=== PATIENT | male | born 1975 | race Caucasian/White ===

== ENCOUNTER 2018-06-27 15:41 | Inpatient (IN) ==
[2018-06-27 16:14] LABS: Basophils % 0.3 % (0.1-2.0); Eosinophils # 0.1 K/mm3 (0.0-0.4); Eosinophils % 0.6 % (0.1-12.0); Hematocrit 50.3 % (42.0-52.0); Hemoglobin 17.1 g/dL (14.1-18.0); Lymphocytes # 1.1 K/mm3 (0.7-4.5); Lymphocytes % 8.2 % (10-50); Mean Corpuscular HGB Conc 33.9 g/dL (31.8-35.4); Mean Corpuscular Hemoglobin 29.9 pg (27.0-31.2); Mean Corpuscular Volume 88.1 fl (80-94); Mean Platelet Volume 6.4 fl (7.4-10.4); Monocytes # 0.7 K/mm3 (0.1-1.0); Monocytes % 5.7 % (1.7-9.3); Neutrophils # 10.8 K/mm3 (1.8-7.8); Neutrophils % 85.1 % (37.0-80.0); Platelet Count 297 K/mm3 (142-424); Red Blood Count 5.71 M/mm3 (4.60-6.20); Red Cell Distribution Width 12.9 % (11.5-17.5); White Blood Count 12.7 K/mm3 (4.8-10.8)
[2018-06-27 16:27] LABS: Albumin Level 4.2 gm/dL (3.4-5.0); Albumin/Globulin Ratio 1.1 (1.1-1.8); Anion Gap 12.6 mEq/L (5-15); Bilirubin,Total 6.4 mg/dL (0.2-1.0); Calcium 9.7 mg/dL (8.5-10.1); Potassium 3.6 mmoL/L (3.5-5.1); Total Protein,Serum 8.2 gm/dL (6.4-8.2)
[2018-06-27 16:38] LABS: Lymphocytes % 5 % (10-50); Monocytes % 7 % (2-9); Neutrophils % 85 % (42-76); RBC Morphology Normal; Total Cells Counted 100
--- NOTE | 2018-06-27 18:18 | Emergency Department Note ---
ED Disposition Clinical Impression: Pancreatitis Disposition: Admitted As Inpatient Condition on Discharge: Good Instructions: Acute Pancreatitis Referrals: Maxx Patel MD [Primary Care Provider] - Time of Disposition: 19:06 - Critical Care Critical Care Time: No Attestation: On 06/27/18, the high probability of a clinically significant, sudden or life threatening deterioration of the following system(s) required my full and direct attention, intervention and personal management. The time I documented below is in addition to time spent performing reported procedures but includes the following listed in this critical care notation. Medical Decision Making - Medical Records Medical records reviewed: Yes: I reviewed the patient's medical records. - Yann Inquiry Pt receiving controlled substance: No Yann was queried for this patient: No Vital Signs: 06/27/18 15:51 06/27/18 17:29 Temperature 97 F L Temperature Source Oral Pulse Rate [Right Brachial] 63 56 L Respiratory Rate 17 Blood Pressure [Right Arm] 159/84 H 159/97 H Blood Pressure Mean [Right Arm] 109 117 Blood Pressure Source [Right Arm] Automatic Cuff Blood Pressure Position [Right Arm] Sitting 02 Sat by Pulse Oximetry 100 98 Oxygen Delivery Method Room Air - Lab Data Lab results reviewed: Yes: I reviewed the patient's lab results. Lab Results 06/27/18 16:03: WBC 12.7 H, RBC 5.71, Hgb 17.1, Hct 50.3, MCV 88.1, MCH 29.9, MCHC 33.9, RDW 12.9, Plt Count 297, MPV 6.4 L, Neut % (Auto) 85.1 H, Lymph % (Auto) 8.2 L, Sutter % (Auto) 5.7, Eos % (Auto) 0.6, Baso % (Auto) 0.3, Neut # (Auto) 10.8 H, Lymph # (Auto) 1.1, Sutter # (Auto) 0.7, Eos # (Auto) 0.1, Baso # (Auto) 0.0, Total Counted 100, Neutrophils % (Manual) 85 H, Band Neutrophils % 1.0, Lymphocytes % (Manual) 5 L, Atypical Lymphs % 2.0, Monocytes % (Manual) 7, Platelet Estimate Normal, RBC Morphology Normal 06/27/18 16:03: Sodium 140, Potassium 3.6, Chloride 102, Carbon Dioxide 29, Anion Gap 12.6, BUN 10, Creatinine 1.07, Estimated Creat Clear 131, Estimated GFR 76, Est GFR ( Amer) 92, Glucose 146 H, Calcium 9.7, Total Bilirubin 6.4 H, AST 306 H*, ALT 770 H*, Alkaline Phosphatase 217 H, Total Protein 8.2, Albumin 4.2, Globulin 4.0 H, Albumin/Globulin Ratio 1.1, Amylase 1939 H*, Lipase 59506 H Result diagrams: 06/27/18 16:03 06/27/18 16:03 Orders (Tests/Meds): ED MEDICATIONS Generic Name Dose Route Start Last Admin Trade Name Freq PRN Reason Stop Dose Admin Sodium Chloride 500 mls @ 999 mls/hr 06/27/18 17:15 06/27/18 17:26 Sod Chlor 0.9% 1000ml Bag IV 06/27/18 17:45 999 mls/hr .[id number] LINDA Administration Discontinued Medications Generic Name Dose Route Start Last Admin Trade Name Freq PRN Reason Stop Dose Admin Hydromorphone HCl 1 mg 06/27/18 18:58 06/27/18 19:00 Dilaudid 2mg/Ml Syringe IV 06/27/18 18:59 1 mg ONCE ONE Administration Ioversol 75 ml 06/27/18 16:49 06/27/18 16:50 Rad-Optiray 350 100ml Vial IV 06/27/18 16:50 75 ml ONCE ONE Administration Ondansetron HCl 4 mg 06/27/18 17:05 06/27/18 17:26 Zofran 4mg/2ml Vial IV 06/27/18 17:06 4 mg ONCE ONE Administration Pantoprazole Sodium 40 mg 06/27/18 17:04 06/27/18 17:26 Protonix 40mg Vial IV 06/27/18 17:05 40 mg ONCE ONE Administration Sodium Chloride 10 ml 06/27/18 16:49 06/27/18 16:50 Rad-Saline Flush 10ml Syringe IV 06/27/18 16:50 10 ml ONCE ONE Administration Sodium Chloride 8 ml 06/27/18 17:04 06/27/18 17:26 Saline Flush 10ml Syringe IV 06/27/18 17:05 8 ml ONCE ONE Administration ORDERS Category Date Time Status CT abdomen pelvis w con Stat Cat Scan 06/27/18 16:00 Taken Urinalysis and Microscopic Stat Lab 06/27/18 15:59 Ordered - Physician Consults Physician Consulted: latrice Reason -: Admission General Adult HPI - General Chief complaint: Abdominal Pain Stated complaint: Abd pain Time Seen by Provider: 06/27/18 16:30 Mode of Arrival: Ambulatory Limitations: No Limitations Description of Symptoms (Recalled from ER Triage Doc. by RN): midepigastric pain incr with eating; swollen, distended after eating - History of Present Illness HPI narrative: 2 weeks of intermittent mid-epigastric pain. no vomiting. no history of pancreatitis/pud,cholelithiasis - Related Data Home Medications Medication Instructions Recorded Confirmed Lisinopril [Lisinopril 20mg Tab] 1 tab PO DAILY 06/27/18 06/27/18 Allergies Allergy/AdvReac Type Severity Reaction Status Date / Time No Known Allergies Allergy Verified 06/27/18 15:58 [facility] History - Hepatitis A Screen Drug use history?: No High risk sexual behaviors?: No History of sexually transmitted infection?: No Currently employed?: No Childcare worker?: No Do you have indoor plumbing?: Yes Do you have electricity?: Yes Attestation statement:: This patient has been screened for Hepatitis A risk factors. I have reviewed the patient's past medical history: Yes - Social History Educational Level: Completed High School Smoking Status: Never smoker Alcohol Intake: never Occupational Status: employed Housing: house Household Members: spouse - Psychiatric History Expresses thoughts of harming self/others: None Suicide Plan Description: No Plan ROS Obtained: Yes All systems reviewed & no additional complaints - Constitutional Constitutional: Denies chills, Denies fever(s) - Eyes Eyes: Reports system reviewed and no additional complaints, except as docu, Denies change in vision - ENT Ears, Nose, Mouth, and Throat: Reports system reviewed and no additional complaints, except as docu, Denies sore throat, Denies throat swelling - Cardiovascular Cardiovascular: Denies chest pain, Denies chest pain at rest, Denies diaphoresis, Denies dyspnea - Respiratory Respiratory: Yes system reviewed and no additional complaints, except as docu, No chest congestion, No cough, No dyspnea on exertion, No pain with cough - Gastrointestinal Gastrointestingal: Reports: system reviewed and no additional complaints, except as docu, abdominal pain, nausea. Denies: diarrhea, vomiting - Musculoskeletal Musculoskeletal: Denies joint stiffness, Denies joint swelling, Denies muscle weakness - Integumentary/Breasts Skin/Breast: Denies rash - Neurologic Neurologic: Denies headache(s), Denies numbness, Denies syncope, Denies vertigo, Denies weakness - Hematologic/Lymphatic Henatologic/Lymphatic: Denies easy bleeding, Denies easy bruising Physical Exam - General General appearance: alert, in no apparent distress - Head Head exam: atraumatic, normocephalic, normal inspection - Eye Eye exam: Present: normal appearance, PERRL, EOMI - ENT ENT exam: Present: normal exam, normal oropharynx, mucous membranes moist, TM's normal bilaterally, normal external ear exam - Neck Neck exam: Present: normal inspection, full ROM, trachea midline. Absent: meningismus, lymphadenopathy - Chest Chest inspection: Present: normal inspection, symmetric chest wall rise. Absent: tenderness - Respiratory Respiratory exam: Present: normal lung sounds bilaterally. Absent: respiratory distress - Cardiovascular Cardiovascular exam: Present: regular rate, normal rhythm. Absent: JVD - Abdominal Exam Abdominal exam: Present: soft, tenderness, normal bowel sounds. Absent: distention, guarding Abdominal tenderness: Present: epigastrium, mild - Extremities Exam Extremities exam: Present: normal inspection - Back Exam Back exam: Present: normal inspection. Absent: tenderness - Neurological Exam Neurological exam: Present: alert, oriented X3 - Psychiatric Psychiatric exam: Present: normal affect, normal mood - Skin Skin exam: Present: warm
[2018-06-28 05:43] LABS: Basophils # 0.1 K/mm3 (0-0.2); Basophils % 0.5 % (0.1-2.0); Eosinophils # 0.2 K/mm3 (0.0-0.4); Eosinophils % 1.9 % (0.1-12.0); Hematocrit 43.6 % (42.0-52.0); Lymphocytes # 2.1 K/mm3 (0.7-4.5); Lymphocytes % 17.6 % (10-50); Mean Corpuscular HGB Conc 33.3 g/dL (31.8-35.4); Mean Corpuscular Hemoglobin 29.2 pg (27.0-31.2); Mean Corpuscular Volume 87.8 fl (80-94); Mean Platelet Volume 6.7 fl (7.4-10.4); Monocytes # 0.5 K/mm3 (0.1-1.0); Monocytes % 4.1 % (1.7-9.3); Neutrophils # 9.1 K/mm3 (1.8-7.8); Neutrophils % 75.9 % (37.0-80.0); Platelet Count 238 K/mm3 (142-424); Red Blood Count 4.97 M/mm3 (4.60-6.20)
[2018-06-28 05:46] LABS: Hemoglobin 14.5 g/dL (14.1-18.0)
[2018-06-28 05:56] LABS: Albumin Level 3.1 gm/dL (3.4-5.0); Anion Gap 14.5 mEq/L (5-15); Bilirubin,Total 1.8 mg/dL (0.2-1.0); Chol/HDL Ratio 4.5 (1-3.5); Globulin 3.2 gm/dl (1.3-3.2); Potassium 3.5 mmoL/L (3.5-5.1); Total Protein,Serum 6.3 gm/dL (6.4-8.2)
[2018-06-28 05:57] LABS: Calcium 8.4 mg/dL (8.5-10.1)
--- NOTE | 2018-06-28 07:34 | Pharmacy Consult Notes ---
[facility] Pharmacy VTE Monitoring - Patient Demographics Admission date: 06/27/18 Report Date: 06/28/18 Time: 07:34 Allergies/Adverse Reactions: Patient Allergies No Known Allergies Allergy (Verified 06/27/18 15:58) Height: 1.7 m Weight: 89.5 kg Patient Problems: Current Active Problems Pancreatitis (Acute) - VTE Risk Labs: VTE Related Lab Results Hgb 14.5 g/dL (14.1-18.0) D 06/28/18 05:35 Hct 43.6 % (42.0-52.0) 06/28/18 05:35 Plt Count 238 K/mm3 (142-424) 06/28/18 05:35 BUN 10 mg/dL (7-18) 06/28/18 05:35 Creatinine 0.86 mg/dL (0.70-1.30) 06/28/18 05:35 Estimated Creat Clear 143 mL/min (50-200) 06/28/18 05:35 VTE Score: 1 VTE Risk Level: Low Risk - Prophylaxis VTE Prophylaxis Ordered?: Yes Types of VTE Prophylaxis: TEDS Knee High Location of Applied Device: Bilateral Lower Extremeties - VTE Diagnosis Confirmed Treatment or plan recommended: Continue Current Treatment
[2018-06-28 08:36] LABS: Amylase 625 U/L (25-115)
--- NOTE | 2018-06-28 08:46 | Consult Report ---
*Admission Date: 06/27/18 *Chief complaint: Abdominal pain *History of present illness: Patient is a pleasant 42-year-old white male. For several weeks he has had some symptoms of intermittent mid abdominal pain. He has a relatively long-standing history of "heartburn" and dyspepsia. However, this weekend he had developed onset of mid epigastric pain which was persistent and unrelenting. He was unable to tolerate food. He presented to the emergency department yesterday early evening. Evaluation revealed radiographic and chemical evidence of acute pancreatitis. Patient denies any prior history of pancreatitis. He does not drink alcohol. Review of Systems - Constitutional Reports anorexia - Eyes Denies loss of vision - ENT Denies abnormal hearing - *Cardiovascular Denies chest pain - *Respiratory Denies shortness of breath - *Gastrointestinal Reports abdominal pain, Reports bloating - *Musculoskeletal Denies abnormal walking - Integumentary/Breasts Denies hair loss - *Neurologic Denies headache(s), Denies numbness, Denies fainting, Denies dizziness, Denies weakness [facility] History Medical History: Reports:: Hypertension Denies:: Cancer, Diabetes Mellitus Type 1, Diabetes Mellitus Type 2, MRSA *Have you ever received a pneumonia vaccine?: No *Have you received a flu vaccine this season?: No Laterality Cases: Right: Partial Knee Replacement, Other Amputation: No - *Social History Educational Level: Completed High School Smoking Status: Never smoker Tobacco Type: smokeless tobacco # Packs/Day (cigarettes): 0 Alcohol Intake: current Alcohol Intake Frequency:: holidays/special occasions only Substance Use Type: marijuana Last Used Substance: unknown *Occupational Status:: employed Housing: house Household Members: spouse *Travel in the last 8 weeks: None - Psychiatric History Expresses thoughts of harming self/others: None Suicide Plan Description: No Plan Family Hx:: Asthma, Cancer, Coronary Artery Disease, Hyperlipidemia, Hypertension, Stroke Meds Home Medications Medication Instructions Recorded Confirmed Type Lisinopril [Lisinopril 20mg Tab] 20 mg PO DAILY 06/27/18 06/28/18 History Allergies Allergy/AdvReac Type Severity Reaction Status Date / Time No Known Allergies Allergy Verified 06/27/18 15:58 Exam Vital signs and Labs for Last 24 Hours: Temp Pulse Resp BP Pulse Ox 98.1 F 57 L 18 128/72 95 06/28/18 08:00 06/28/18 08:00 06/28/18 08:26 06/28/18 08:00 06/28/18 08:00 Laboratory Results - last 24 hr 06/27/18 16:03: WBC 12.7 H, RBC 5.71, Hgb 17.1, Hct 50.3, MCV 88.1, MCH 29.9, MCHC 33.9, RDW 12.9, Plt Count 297, MPV 6.4 L, Neut % (Auto) 85.1 H, Lymph % (Auto) 8.2 L, Grainger % (Auto) 5.7, Eos % (Auto) 0.6, Baso % (Auto) 0.3, Neut # (Auto) 10.8 H, Lymph # (Auto) 1.1, Grainger # (Auto) 0.7, Eos # (Auto) 0.1, Baso # (Auto) 0.0, Total Counted 100, Neutrophils % (Manual) 85 H, Band Neutrophils % 1.0, Lymphocytes % (Manual) 5 L, Atypical Lymphs % 2.0, Monocytes % (Manual) 7, Platelet Estimate Normal, RBC Morphology Normal 06/27/18 16:03: Sodium 140, Potassium 3.6, Chloride 102, Carbon Dioxide 29, Anion Gap 12.6, BUN 10, Creatinine 1.07, Estimated Creat Clear 131, Estimated GFR 76, Est GFR ( Amer) 92, Glucose 146 H, Calcium 9.7, Total Bilirubin 6.4 H, AST 306 H*, ALT 770 H*, Alkaline Phosphatase 217 H, Total Protein 8.2, Albumin 4.2, Globulin 4.0 H, Albumin/Globulin Ratio 1.1, Amylase 1939 H*, Lipase 04963 H 06/28/18 05:35: WBC 12.0 H, RBC 4.97, Hgb 14.5 D, Hct 43.6, MCV 87.8, MCH 29.2, MCHC 33.3, RDW 13.0, Plt Count 238, MPV 6.7 L, Neut % (Auto) 75.9, Lymph % (Auto) 17.6, Grainger % (Auto) 4.1, Eos % (Auto) 1.9, Baso % (Auto) 0.5, Neut # (Auto) 9.1 H, Lymph # (Auto) 2.1, Grainger # (Auto) 0.5, Eos # (Auto) 0.2, Baso # (Auto) 0.1 06/28/18 05:35: Sodium 142, Potassium 3.5, Chloride 105, Carbon Dioxide 26, Anion Gap 14.5, BUN 10, Creatinine 0.86, Estimated Creat Clear 143, Estimated GFR 98, Est GFR ( Amer) 119 D, Glucose 102 D, Calcium 8.4 L D, Total Bilirubin 1.8 H, AST 110 H D, ALT 469 H*, Alkaline Phosphatase 164 H, Total Protein 6.3 L, Albumin 3.1 L D, Globulin 3.2, Albumin/Globulin Ratio 1.0 L, Triglycerides 106, Cholesterol 163, LDL Cholesterol 106, VLDL Cholesterol 21, HDL Cholesterol 36, Cholesterol/HDL Ratio 4.5 H 06/28/18 05:35: Amylase 625 H* I & O for Last 24 hours: Intake & Output 06/25/18 06/26/18 06/27/18 06/28/18 10:59 10:59 11:59 11:59 Intake Total 3570 / 3570 Balance 3570 / 3570 Weight 197 lb 5.019 oz - *Routine HEENT Exam Head: Present: normocephalic Eye: Present: EOMI, PERRL ENT: Present: mucous membranes moist - *Routine Neck Exam Present: supple. Absent: lymphadenopathy - *Routine Respiratory Exam Present: CTA bilaterally - *Routine Cardiovascular Exam Present: RRR - *Routine Abdominal Exam Present: soft, normoactive bowel sounds Comments: Only very minimal subjective tenderness without guarding or rebound in the right abdomen. - *Routine Extremities Exam Absent: cyanosis, clubbing, edema - *Routine Skin Exam Present: warm. Absent: rash - *Routine Neurological Exam Present: alert, oriented X3 - Detailed Eye Exam Eyelids: Left normal inspection Results - Labs 06/28/18 05:35 06/28/18 05:35 Laboratory Results - last 24 hr 06/27/18 16:03: WBC 12.7 H, RBC 5.71, Hgb 17.1, Hct 50.3, MCV 88.1, MCH 29.9, MCHC 33.9, RDW 12.9, Plt Count 297, MPV 6.4 L, Neut % (Auto) 85.1 H, Lymph % (Auto) 8.2 L, Grainger % (Auto) 5.7, Eos % (Auto) 0.6, Baso % (Auto) 0.3, Neut # (Auto) 10.8 H, Lymph # (Auto) 1.1, Grainger # (Auto) 0.7, Eos # (Auto) 0.1, Baso # (Auto) 0.0, Total Counted 100, Neutrophils % (Manual) 85 H, Band Neutrophils % 1.0, Lymphocytes % (Manual) 5 L, Atypical Lymphs % 2.0, Monocytes % (Manual) 7, Platelet Estimate Normal, RBC Morphology Normal 06/27/18 16:03: Sodium 140, Potassium 3.6, Chloride 102, Carbon Dioxide 29, Anion Gap 12.6, BUN 10, Creatinine 1.07, Estimated Creat Clear 131, Estimated GFR 76, Est GFR ( Amer) 92, Glucose 146 H, Calcium 9.7, Total Bilirubin 6.4 H, AST 306 H*, ALT 770 H*, Alkaline Phosphatase 217 H, Total Protein 8.2, Albumin 4.2, Globulin 4.0 H, Albumin/Globulin Ratio 1.1, Amylase 1939 H*, Lipase 30800 H 06/28/18 05:35: WBC 12.0 H, RBC 4.97, Hgb 14.5 D, Hct 43.6, MCV 87.8, MCH 29.2, MCHC 33.3, RDW 13.0, Plt Count 238, MPV 6.7 L, Neut % (Auto) 75.9, Lymph % (Auto) 17.6, Grainger % (Auto) 4.1, Eos % (Auto) 1.9, Baso % (Auto) 0.5, Neut # (Auto) 9.1 H, Lymph # (Auto) 2.1, Grainger # (Auto) 0.5, Eos # (Auto) 0.2, Baso # (Auto) 0.1 06/28/18 05:35: Sodium 142, Potassium 3.5, Chloride 105, Carbon Dioxide 26, Anion Gap 14.5, BUN 10, Creatinine 0.86, Estimated Creat Clear 143, Estimated GFR 98, Est GFR ( Amer) 119 D, Glucose 102 D, Calcium 8.4 L D, Total Bilirubin 1.8 H, AST 110 H D, ALT 469 H*, Alkaline Phosphatase 164 H, Total Protein 6.3 L, Albumin 3.1 L D, Globulin 3.2, Albumin/Globulin Ratio 1.0 L, Triglycerides 106, Cholesterol 163, LDL Cholesterol 106, VLDL Cholesterol 21, HDL Cholesterol 36, Cholesterol/HDL Ratio 4.5 H 06/28/18 05:35: Amylase 625 H* Assessment and Plan - Assessment and plan all Dx Assessment and Plan for all problems:: Patient has evidence of acute pancreatitis. Clinically he feels better. Suspe ct biliary pancreatitis. Plan for ultrasound of the gallbladder today to better evaluate the biliary tree. If he has evidence suggestive of biliary pancreatitis likely would plan for cholecystectomy with cholangiogram during this hospitalization once the pancreatitis shows resolution.
[2018-06-28 09:02] LABS: Lipase 4576 u/L (73-393)
--- NOTE | 2018-06-28 09:34 | History & Physical Report ---
*Admission Date: 06/27/18 <Natalie Vizcarra 06/28/18 09:34> *Chief complaint: Abdominal pain <Natalie Vizcarra 06/28/18 09:34> *History of present illness: Mr. Perez is a 42-year-old male patient with a history of hypertension who has had intermittent abdominal pain for the past 3 weeks. The pain became worse the past 3 days and he describes it as sharp, constant pain. He has had minimal nausea and no vomiting. He has been able to eat and drink normally. He feels bloated. When the pain became worse he presented to the emergency room. He was able to sleep at intervals during the night. The pain became worse this a.m. He is not nauseated and has not vomited. He has been experiencing constipation with last bowel movement 4 days ago. He has been taking a laxative. Patient is NPO <Natalie Vizcarra 06/28/18 13:17> [facility] History Medical History: Reports:: Hypertension Denies:: Cancer, Diabetes Mellitus Type 1, Diabetes Mellitus Type 2, MRSA <Natalie Vizcarra 06/28/18 09:34> *Have you ever received a pneumonia vaccine?: No <Natalie Vizcarra 06/28/18 09:34> *Have you received a flu vaccine this season?: No <Natalie Vizcarra 06/28/18 09:34> Laterality Cases: Right: Partial Knee Replacement, Other <Natalie Vizcarra 06/28/18 09:34> Amputation: No <Natalie Vizcarra 06/28/18 09:34> - *Social History Smoking Status: Never smoker <Natalie Vizcarra 06/28/18 09:34> Tobacco Type: smokeless tobacco <Natalie Vizcarra 06/28/18 09:34> # Packs/Day (cigarettes): 0 <Vizcarra,Natalie 06/28/18 09:34> Alcohol Intake: current <Vizcarra,Natalie 06/28/18 09:34> Alcohol Intake Frequency:: holidays/special occasions only <VizcarraNatalie 06/28/18 09:34> Substance Use Type: marijuana <CarmitaNatalie 06/28/18 09:34> Last Used Substance: unknown <Natalie Vizcarra 06/28/18 09:34> *Occupational Status:: employed <Natalie Vizcarra 06/28/18 09:34> Housing: house <Natalie Vizcarra 06/28/18 09:34> Household Members: spouse <Natalie Vizcarra 06/28/18 09:34> *Travel in the last 8 weeks: None <Natalie Vizcarra 06/28/18 09:34> - Psychiatric History Expresses thoughts of harming self/others: None <Natalie Vizcarra 06/28/18 09:34> Suicide Plan Description: No Plan <Natalie Vizcarra 06/28/18 09:34> Family Hx:: Asthma, Cancer, Coronary Artery Disease, Heart Attack, Hyperlipidemia, Hypertension, Stroke <Natalie Vizcarra 06/28/18 13:17> Review of Systems - Constitutional Reports fever(s), Denies headache(s) <Natalie Vizcarra 06/28/18 13:17> - ENT Denies ear pain, Denies sore throat <Natalie Vizcarra 06/28/18 13:17> - *Cardiovascular Denies chest pain, Denies shortness of breath, Denies irregular heart rhythm <Natalie Vizcarra 06/28/18 13:17> - *Respiratory Denies chest congestion, Denies cough, Denies shortness of breath <Natalie Vizcarra 06/28/18 13:17> - *Gastrointestinal Reports abdominal pain, Reports belching, Reports bloating, Reports change in bowel habits, Reports constipation, Reports nausea, Denies heartburn, Denies vomiting blood, Denies vomiting <Natalie Vizcarra 06/28/18 13:17> - *Genitourinary Denies difficulty urinating <Natalie Vizcarra 06/28/18 13:17> - *Musculoskeletal Denies abnormal walking <Natalie Vizcarra 06/28/18 13:17> - *Neurologic Denies abnormal walking, Denies abnormal hearing, Denies headache(s), Denies loss of vision, Denies numbness, Denies fainting, Denies dizziness, Denies weakness <Natalie Vizcarra 06/28/18 09:34> Meds Home Medications Medication Instructions Recorded Confirmed Type Lisinopril [Lisinopril 20mg Tab] 20 mg PO DAILY 06/27/18 06/28/18 History <Maxx Patel - 06/28/18 13:50> Allergies Allergy/AdvReac Type Severity Reaction Status Date / Time No Known Allergies Allergy Verified 06/27/18 15:58 <Maxx Patel - 06/28/18 13:50> Exam Vital signs and Labs for Last 24 Hours: Temp Pulse Resp BP Pulse Ox 98.1 F 57 L 18 128/72 95 06/28/18 08:00 06/28/18 08:00 06/28/18 08:26 06/28/18 08:00 06/28/18 08:00 Laboratory Results - last 24 hr 06/27/18 16:03: WBC 12.7 H, RBC 5.71, Hgb 17.1, Hct 50.3, MCV 88.1, MCH 29.9, MCHC 33.9, RDW 12.9, Plt Count 297, MPV 6.4 L, Neut % (Auto) 85.1 H, Lymph % (Auto) 8.2 L, [place] % (Auto) 5.7, Eos % (Auto) 0.6, Baso % (Auto) 0.3, Neut # (Auto) 10.8 H, Lymph # (Auto) 1.1, [place] # (Auto) 0.7, Eos # (Auto) 0.1, Baso # (Auto) 0.0, Total Counted 100, Neutrophils % (Manual) 85 H, Band Neutrophils % 1.0, Lymphocytes % (Manual) 5 L, Atypical Lymphs % 2.0, Monocytes % (Manual) 7, Platelet Estimate Normal, RBC Morphology Normal 06/27/18 16:03: Sodium 140, Potassium 3.6, Chloride 102, Carbon Dioxide 29, Anion Gap 12.6, BUN 10, Creatinine 1.07, Estimated Creat Clear 131, Estimated GFR 76, Est GFR ( Amer) 92, Glucose 146 H, Calcium 9.7, Total Bilirubin 6.4 H, AST 306 H*, ALT 770 H*, Alkaline Phosphatase 217 H, Total Protein 8.2, Albumin 4.2, Globulin 4.0 H, Albumin/Globulin Ratio 1.1, Amylase 1939 H*, Lipase 95038 H 06/28/18 05:35: WBC 12.0 H, RBC 4.97, Hgb 14.5 D, Hct 43.6, MCV 87.8, MCH 29.2, MCHC 33.3, RDW 13.0, Plt Count 238, MPV 6.7 L, Neut % (Auto) 75.9, Lymph % (Auto) 17.6, [place] % (Auto) 4.1, Eos % (Auto) 1.9, Baso % (Auto) 0.5, Neut # (Auto) 9.1 H, Lymph # (Auto) 2.1, [place] # (Auto) 0.5, Eos # (Auto) 0.2, Baso # (Auto) 0.1 06/28/18 05:35: Sodium 142, Potassium 3.5, Chloride 105, Carbon Dioxide 26, Anion Gap 14.5, BUN 10, Creatinine 0.86, Estimated Creat Clear 143, Estimated GFR 98, Est GFR ( Amer) 119 D, Glucose 102 D, Calcium 8.4 L D, Total Bilirubin 1.8 H, AST 110 H D, ALT 469 H*, Alkaline Phosphatase 164 H, Total Protein 6.3 L, Albumin 3.1 L D, Globulin 3.2, Albumin/Globulin Ratio 1.0 L, Triglycerides 106, Cholesterol 163, LDL Cholesterol 106, VLDL Cholesterol 21, HDL Cholesterol 36, Cholesterol/HDL Ratio 4.5 H 06/28/18 05:35: Amylase 625 H*, Lipase 4576 H <Maxx Patel - 06/28/18 13:50> Temp Pulse Resp BP Pulse Ox 98.1 F 57 L 18 128/72 95 06/28/18 08:00 06/28/18 08:00 06/28/18 08:26 06/28/18 08:00 06/28/18 08:00 Laboratory Results - last 24 hr 06/27/18 16:03: WBC 12.7 H, RBC 5.71, Hgb 17.1, Hct 50.3, MCV 88.1, MCH 29.9, MCHC 33.9, RDW 12.9, Plt Count 297, MPV 6.4 L, Neut % (Auto) 85.1 H, Lymph % (Auto) 8.2 L, [place] % (Auto) 5.7, Eos % (Auto) 0.6, Baso % (Auto) 0.3, Neut # (Auto) 10.8 H, Lymph # (Auto) 1.1, [place] # (Auto) 0.7, Eos # (Auto) 0.1, Baso # (Auto) 0.0, Total Counted 100, Neutrophils % (Manual) 85 H, Band Neutrophils % 1.0, Lymphocytes % (Manual) 5 L, Atypical Lymphs % 2.0, Monocytes % (Manual) 7, Platelet Estimate Normal, RBC Morphology Normal 06/27/18 16:03: Sodium 140, Potassium 3.6, Chloride 102, Carbon Dioxide 29, Anion Gap 12.6, BUN 10, Creatinine 1.07, Estimated Creat Clear 131, Estimated GFR 76, Est GFR ( Amer) 92, Glucose 146 H, Calcium 9.7, Total Bilirubin 6.4 H, AST 306 H*, ALT 770 H*, Alkaline Phosphatase 217 H, Total Protein 8.2, Albumin 4.2, Globulin 4.0 H, Albumin/Globulin Ratio 1.1, Amylase 1939 H*, Lipase 81092 H 06/28/18 05:35: WBC 12.0 H, RBC 4.97, Hgb 14.5 D, Hct 43.6, MCV 87.8, MCH 29.2, MCHC 33.3, RDW 13.0, Plt Count 238, MPV 6.7 L, Neut % (Auto) 75.9, Lymph % (Auto) 17.6, [place] % (Auto) 4.1, Eos % (Auto) 1.9, Baso % (Auto) 0.5, Neut # (Auto) 9.1 H, Lymph # (Auto) 2.1, [place] # (Auto) 0.5, Eos # (Auto) 0.2, Baso # (Auto) 0.1 06/28/18 05:35: Sodium 142, Potassium 3.5, Chloride 105, Carbon Dioxide 26, Anion Gap 14.5, BUN 10, Creatinine 0.86, Estimated Creat Clear 143, Estimated GFR 98, Est GFR ( Amer) 119 D, Glucose 102 D, Calcium 8.4 L D, Total Bilirubin 1.8 H, AST 110 H D, ALT 469 H*, Alkaline Phosphatase 164 H, Total Pro tein 6.3 L, Albumin 3.1 L D, Globulin 3.2, Albumin/Globulin Ratio 1.0 L, Triglycerides 106, Cholesterol 163, LDL Cholesterol 106, VLDL Cholesterol 21, HDL Cholesterol 36, Cholesterol/HDL Ratio 4.5 H 06/28/18 05:35: Amylase 625 H*, Lipase 4576 H <VizcarraNatalie - 06/28/18 09:34> I & O for Last 24 hours: Intake & Output 06/26/18 06/27/18 06/28/18 06/29/18 10:59 11:59 11:59 11:59 Intake Total 3570 / 3570 Balance 3570 / 3570 Weight 197 lb 5.019 oz <Maxx Patel - 06/28/18 13:50> Intake & Output 06/25/18 06/26/18 06/27/18 06/28/18 10:59 10:59 11:59 11:59 Intake Total 3570 / 3570 Balance 3570 / 3570 Weight 197 lb 5.019 oz <VizcarraNatalie kelley - 06/28/18 13:27> Radiology Reports for the Last 24 Hours: 06/27/18 CT of abdomen and pelvis IMPRESSION. 1. Acute pancreatitis. With Peripancreatic stranding and prominent fluid collection inferior to pancreas.. .Fluid seen about the head of pancreas & duodenum ....*But the most Prominent & Extensive Fluid Collection is seen inferior to the pancreas. -.Fluid here extends along root of mesentery, with large fluid collection seen tracking inferiorly along the anterior aspect of Gerota's fascia. (Along right pararenal space). This fluid also extends towards right paracolic gutter region. .. . 2. Gallbladder. Sludge with I suspect partially calcified stone. Consider gallbladder ultrasound Common duct appears normal 3. Suggestion of perhaps mild thickening of the stomach wall, as well as distal esophagus Possibly reflects gastritis & esophagitis. Correlation required clinically. 4. 4. nonobstructive calculi at the lower pole left kidney noted-measuring 5 x 3 mm incidentally noted <Natalie Vizcarra - 06/28/18 13:20> - Constitutional no acute distress <Natalie Vizcarra - 06/28/18 13:17> Comments: sitting on the bedside and is somewhat uncomfortable <Natalie Vizcarra 06/28/18 13:17> - *Routine HEENT Exam Head: Present: normocephalic, atraumatic <Natalie Vizcarra 06/28/18 13:17> Eye: Present: PERRL. Absent: conjunctival icterus, scleral injection [facility] ENT: Present: mucous membranes moist <[facility] 06/28/18 13:17> - *Routine Neck Exam Present: supple. Absent: carotid bruit, lymphadenopathy, thyromegaly <[facility] 06/28/18 13:17> - *Routine Respiratory Exam Present: CTA bilaterally (A&P) <[facility] 06/28/18 13:17> - *Routine Cardiovascular Exam Present: RRR <[facility] 06/28/18 13:17> - *Routine Abdominal Exam Present: soft, tenderness (epigastrium and RLQ) <[facility] 06/28/18 13:17> - *Routine Extremities Exam Absent: edema, calf tenderness <[facility] 06/28/18 13:17> - *Routine Neurological Exam Present: alert, oriented X3 <[facility] 06/28/18 13:17> Assessment and Plan (1) Hypertension Current visit: Yes Status: Acute Category: Medical Code(s): I10 - Essential (primary) hypertension (2) Elevated LFTs Current visit: Yes Status: Acute Category: Medical Code(s): R94.5 - Abnormal results of liver function studies (3) Elevated bilirubin Current visit: Yes Status: Acute Category: Medical Code(s): R17 - Unspecified jaundice (4) Biliary sludge Current visit: Yes Status: Acute Category: Medical Code(s): K83.8 - Other specified diseases of biliary tract (5) Kidney stone Current visit: Yes Status: Acute Category: Medical Code(s): N20.0 - Calculus of kidney (6) Pancreatitis Current visit: Yes Status: Acute Category: Medical Code(s): K85.90 - Acute pancreatitis without necrosis or infection, unspecified <Maxx Patel - 06/28/18 13:50> (1) Hypertension Current visit: Yes Status: Acute Category: Medical Code(s): I10 - Essential (primary) hypertension [facility]/28[facility]18 13:22> - Assessment and plan all Dx Assessment and Plan for all problems:: Saw patient, agree with above note. <Maxx Patel - 06/28/18 13:50> surgical consult reviewed; to have GB US this AM; Lab have improved; pain management and continue with IVF <Natalie Vizcarra - 06/28/18 13:27>
[2018-06-29 06:03] LABS: Basophils % 0.3 % (0.1-2.0); Eosinophils # 0.3 K/mm3 (0.0-0.4); Eosinophils % 2.3 % (0.1-12.0); Hematocrit 40.2 % (42.0-52.0); Hemoglobin 13.6 g/dL (14.1-18.0); Lymphocytes # 1.5 K/mm3 (0.7-4.5); Lymphocytes % 10.9 % (10-50); Mean Corpuscular HGB Conc 33.9 g/dL (31.8-35.4); Mean Corpuscular Hemoglobin 29.8 pg (27.0-31.2); Mean Corpuscular Volume 87.9 fl (80-94); Mean Platelet Volume 6.6 fl (7.4-10.4); Monocytes # 0.8 K/mm3 (0.1-1.0); Neutrophils # 10.7 K/mm3 (1.8-7.8); Neutrophils % 80.5 % (37.0-80.0); Platelet Count 213 K/mm3 (142-424); Red Blood Count 4.58 M/mm3 (4.60-6.20); White Blood Count 13.3 K/mm3 (4.8-10.8)
[2018-06-29 06:23] LABS: Albumin Level 2.9 gm/dL (3.4-5.0); Albumin/Globulin Ratio 0.9 (1.1-1.8); Anion Gap 13.3 mEq/L (5-15); Bilirubin,Total 1.3 mg/dL (0.2-1.0); Calcium 8.2 mg/dL (8.5-10.1); Globulin 3.3 gm/dl (1.3-3.2); Potassium 3.3 mmoL/L (3.5-5.1); Total Protein,Serum 6.2 gm/dL (6.4-8.2)
--- NOTE | 2018-06-29 07:12 | Progress Note ---
Subjective Patient reports: feels better Narrative: Slept well. Less pain. Patient states he does not wish to try anything beyond clears yet. Exam Vital signs and Labs for Last 24 Hours: Temp Pulse Resp BP Pulse Ox 98.4 F 81 16 136/86 94 L 06/29/18 04:00 06/29/18 04:00 06/29/18 04:00 06/29/18 04:00 06/29/18 04:00 Laboratory Results - last 24 hr 06/28/18 05:35: Amylase 625 H*, Lipase 4576 H 06/29/18 05:54: WBC 13.3 H, RBC 4.58 L, Hgb 13.6 L, Hct 40.2 L, MCV 87.9, MCH 29.8, MCHC 33.9, RDW 13.0, Plt Count 213, MPV 6.6 L, Neut % (Auto) 80.5 H, Lymph % (Auto) 10.9, [place] % (Auto) 6.0, Eos % (Auto) 2.3, Baso % (Auto) 0.3, Neut # (Auto) 10.7 H, Lymph # (Auto) 1.5, [place] # (Auto) 0.8, Eos # (Auto) 0.3, Baso # (Auto) 0.0 06/29/18 05:54: Sodium 141, Potassium 3.3 L, Chloride 106, Carbon Dioxide 25, An ion Gap 13.3, BUN 7 D, Creatinine 0.78, Estimated Creat Clear 158, Estimated GFR 110, Est GFR ( Amer) 133, Glucose 96, Calcium 8.2 L, Total Bilirubin 1.3 H, AST 65 H D, ALT 326 H*, Alkaline Phosphatase 139 H, Total Protein 6.2 L, Albumin 2.9 L, Globulin 3.3 H, Albumin/Globulin Ratio 0.9 L, Amylase 401 H*, Lipase 1678 H I & O for Last 24 hours: Intake & Output 06/26/18 06/27/18 06/28/18 06/29/18 10:59 11:59 11:59 11:59 Intake Total 3570 / 3570 3599 / 3599 Balance 3570 / 3570 3599 / 3599 Weight 197 lb 5.019 oz - *Routine Abdominal Exam Present: soft Comments: Very minimal tenderness. Progress Note: A&P (1) Hypertension Status: Acute Current Visit: Yes (2) Elevated LFTs Status: Acute Current Visit: Yes (3) Elevated bilirubin Status: Acute Current Visit: Yes (4) Biliary sludge Status: Acute Current Visit: Yes (5) Kidney stone Status: Acute Current Visit: Yes (6) Pancreatitis Status: Acute Current Visit: Yes Assessment and Plan for All Diagnoses:: Ultrasound revealed gallstones with mild thickening of gallbladder. Clinical scenario consistent with biliary pancreatitis. Enzymes, LFTs improving. Plan cholecystectomy with cholangiogram during this admission, as early as tomorrow pending laboratory studies.
--- NOTE | 2018-06-29 08:55 | Progress Note ---
Internal Medicine - PN: Subj *Date: 06/29/18 *Time: 08:53 Interval history: Patient feels better today. Exam Vital signs and Labs for Last 24 Hours: Temp Pulse Resp BP Pulse Ox 98.8 F 79 17 127/68 100 06/29/18 08:00 06/29/18 08:00 06/29/18 08:00 06/29/18 08:00 06/29/18 08:27 Laboratory Results - last 24 hr 06/28/18 05:35: Lipase 4576 H 06/29/18 05:54: WBC 13.3 H, RBC 4.58 L, Hgb 13.6 L, Hct 40.2 L, MCV 87.9, MCH 29.8, MCHC 33.9, RDW 13.0, Plt Count 213, MPV 6.6 L, Neut % (Auto) 80.5 H, Lymph % (Auto) 10.9, [place] % (Auto) 6.0, Eos % (Auto) 2.3, Baso % (Auto) 0.3, Neut # (Auto) 10.7 H, Lymph # (Auto) 1.5, [place] # (Auto) 0.8, Eos # (Auto) 0.3, Baso # (Auto) 0.0 06/29/18 05:54: Sodium 141, Potassium 3.3 L, Chloride 106, Carbon Dioxide 25, Anion Gap 13.3, BUN 7 D, Creatinine 0.78, Estimated Creat Clear 158, Estimated GFR 110, Est GFR ( Amer) 133, Glucose 96, Calcium 8.2 L, Total Bilirubin 1.3 H, AST 65 H D, ALT 326 H*, Alkaline Phosphatase 139 H, Total Protein 6.2 L, Albumin 2.9 L, Globulin 3.3 H, Albumin/Globulin Ratio 0.9 L, Amylase 401 H*, Lipase 1678 H I & O for Last 24 hours: Intake & Output 06/26/18 06/27/18 06/28/18 06/29/18 10:59 11:59 11:59 11:59 Intake Total 3570 / 3570 3839 / 3839 Balance 3570 / 3570 3839 / 3839 Weight 197 lb 5.019 oz - Constitutional no acute distress - *Routine HEENT Exam Head: Present: normocephalic Eye: Present: EOMI ENT: Present: mucous membranes moist - *Routine Neck Exam Present: supple. Absent: lymphadenopathy - *Routine Respiratory Exam Present: CTA bilaterally - *Routine Cardiovascular Exam Present: RRR - *Routine Abdominal Exam Present: soft, normoactive bowel sounds, tenderness (periumbilical) - *Routine Extremities Exam Absent: cyanosis, clubbing, edema - *Routine Skin Exam Present: warm. Absent: rash - *Routine Neurological Exam Present: alert, oriented X3 Assessment and Plan (1) Hypertension Current visit: Yes Status: Acute Category: Medical Code(s): I10 - Essential (primary) hypertension (2) Elevated LFTs Current visit: Yes Status: Acute Category: Medical Code(s): R94.5 - Abnormal results of liver function studies (3) Elevated bilirubin Current visit: Yes Status: Acute Category: Medical Code(s): R17 - Unspecified jaundice (4) Biliary sludge Current visit: Yes Status: Acute Category: Medical Code(s): K83.8 - Other specified diseases of biliary tract (5) Kidney stone Current visit: Yes Status: Acute Category: Medical Code(s): N20.0 - Calculus of kidney (6) Pancreatitis Current visit: Yes Status: Acute Category: Medical Code(s): K85.90 - Acute pancreatitis without necrosis or infection, unspecified (7) Cholelithiasis NOS Current visit: Yes Status: Acute Category: Medical Code(s): K80.20 - Calculus of gallbladder without cholecystitis without obstruction - Assessment and plan all Dx Assessment and Plan for all problems:: Labs have improved, surgery note reviewed, possible surgery tomorrow.
[2018-06-29 11:21] LABS: Hepatitis B Core Antibody IgM Negative (Negative); Hepatitis B Surface Antigen Negative (Negative)
[2018-06-29 16:10] LABS: Hepatitis C Antibody <0.1 s/co ratio (0.0-0.9)
--- NOTE | 2018-06-30 07:21 | Progress Note ---
Subjective Patient reports: no new complaints Narrative: Patient still has had some abdominal pain with excessive movements and activity. Tolerating clear liquid diet. However, overall, feels better. Exam Vital signs and Labs for Last 24 Hours: Temp Pulse Resp BP Pulse Ox 98.6 F 96 H 14 146/95 H 94 L 06/30/18 04:00 06/30/18 04:00 06/30/18 04:00 06/30/18 04:00 06/30/18 04:00 Laboratory Results - last 24 hr 06/27/18 16:43: Hepatitis A IgM Ab Negative, Hep Bs Antigen Negative, Hep B Core IgM Ab Negative, Hepatitis C Antibody <0.1 I & O for Last 24 hours: Intake & Output 06/27/18 06/28/18 06/29/18 06/30/18 11:59 11:59 11:59 11:59 Intake Total 3570 / 3570 3839 / 3839 2028 Balance 3570 / 3570 3839 / 3839 2028 Weight 197 lb 5.019 oz - *Routine Abdominal Exam Present: soft. Absent: tenderness Progress Note: A&P (1) Hypertension Status: Acute Current Visit: Yes (2) Elevated LFTs Status: Acute Current Visit: Yes (3) Elevated bilirubin Status: Acute Current Visit: Yes (4) Biliary sludge Status: Acute Current Visit: Yes (5) Kidney stone Status: Acute Current Visit: Yes (6) Pancreatitis Status: Acute Current Visit: Yes (7) Cholelithiasis NOS Status: Acute Current Visit: Yes Assessment and Plan for All Diagnoses:: Biliary pancreatitis. Clinically improving. Check laboratory studies today and possible cholecystectomy with cholangiogram soon.
[2018-06-30 07:27] LABS: Microscopic, Urine URINE MICROSCOPIC (MICROSCOPIC)
[2018-06-30 07:50] LABS: Appearance,Urine CLEAR (Clear); Blood, Urine Negative (Negative); Color,Urine YELLOW (Yellow); Glucose,Urine (UA) Negative (Negative); Ketones,Urine 3+ (Negative); Leukocyte Esterase,Urine Negative (Negative); Protein,Urine Negative (Negative)
[2018-06-30 07:58] LABS: Bilirubin,Urine Negative (Negative)
[2018-06-30 08:25] LABS: Bacteria,Urine Trace /lpf; Squamous Epithelial Cell,Urine Occasional #/hpf (0-5); WBC,Urine Occasional #/hpf (0-3)
--- NOTE | 2018-06-30 08:28 | Progress Note ---
<Natalie Vizcarra - Last Filed: 06/30/18 08:24> Internal Medicine - PN: Subj *Date: 06/30/18 *Time: 08:25 Interval history: Continues with abdominal discomfort. He denies nausea this a.m. He was able to take clear liquids yesterday. He does pass some flatus but has not had a bowel movement. He ambulates without difficulty. Patient and are a little frustrated. He thought he would have his surgery this a.m. He is staying n.p.o. Repeat labs have been ordered. Exam Vital signs and Labs for Last 24 Hours: Temp Pulse Resp BP Pulse Ox 98.1 F 81 17 141/89 H 95 06/30/18 08:00 06/30/18 08:00 06/30/18 08:00 06/30/18 08:00 06/30/18 08:00 Laboratory Results - last 24 hr 06/27/18 16:43: Hepatitis A IgM Ab Negative, Hep Bs Antigen Negative, Hep B Core IgM Ab Negative, Hepatitis C Antibody <0.1 06/30/18 07:14: Urine Color Yellow, Urine Appearance Clear, Urine pH 6.0, Ur Specific [place] 1.020, Urine Protein Negative, Urine Glucose (UA) Negative, Urine Ketones 3+, Urine Blood Negative, Urine Nitrate Negative, Urine Bilirubin Negative, Urine Urobilinogen 1.0, Ur Leukocyte Esterase Negative I & O for Last 24 hours: Intake & Output 06/27/18 06/28/18 06/29/18 06/30/18 11:59 11:59 11:59 11:59 Intake Total 3570 / 3570 3839 / 3839 2028 Balance 3570 / 3570 3839 / 3839 2028 Weight 197 lb 5.019 oz - Constitutional no acute distress - *Routine Respiratory Exam Present: CTA bilaterally (Anteriorly and posteriorly) - *Routine Cardiovascular Exam Present: RRR - *Routine Abdominal Exam Present: soft, normoactive bowel sounds, tenderness (Right upper quadrant and across lower abdomen) - *Routine Extremities Exam Absent: edema, calf tenderness - *Routine Neurological Exam Present: alert, oriented X3 Assessment and Plan (1) Hypertension Current visit: Yes Status: Acute Category: Medical Code(s): I10 - Essential (primary) hypertension (2) Elevated LFTs Current visit: Yes Status: Acute Category: Medical Code(s): R94.5 - Abnormal results of liver function studies (3) Elevated bilirubin Current visit: Yes Status: Acute Category: Medical Code(s): R17 - Unspecified jaundice (4) Biliary sludge Current visit: Yes Status: Acute Category: Medical Code(s): K83.8 - Other specified diseases of biliary tract (5) Kidney stone Current visit: Yes Status: Acute Category: Medical Code(s): N20.0 - Calculus of kidney (6) Pancreatitis Current visit: Yes Status: Acute Category: Medical Code(s): K85.90 - Acute pancreatitis without necrosis or infection, unspecified (7) Cholelithiasis NOS Current visit: Yes Status: Acute Category: Medical Code(s): K80.20 - Calculus of gallbladder without cholecystitis without obstruction - Assessment and plan all Dx Assessment and Plan for all problems:: As per Dr. Ponce's note. Labs have been ordered. He will remain n.p.o. for now <Maxx Patel - Last Filed: 06/30/18 11:06> Exam Vital signs and Labs for Last 24 Hours: Temp Pulse Resp BP Pulse Ox 98.1 F 81 17 141/89 H 96 06/30/18 08:00 06/30/18 08:00 06/30/18 08:00 06/30/18 08:00 06/30/18 08:00 Laboratory Results - last 24 hr 06/27/18 16:43: Hepatitis A IgM Ab Negative, Hep Bs Antigen Negative, Hep B Core IgM Ab Negative, Hepatitis C Antibody <0.1 06/30/18 07:14: Urine Color Yellow, Urine Appearance Clear, Urine pH 6.0, Ur Specific [place] 1.020, Urine Protein Negative, Urine Glucose (UA) Negative, Urine Ketones 3+, Urine Blood Negative, Urine Nitrate Negative, Urine Bilirubin Negative, Urine Urobilinogen 1.0, Ur Leukocyte Esterase Negative, Urine RBC None, Urine WBC Occasional, Ur Squamous Epith Cells Occasional, Urine Bacteria Trace 06/30/18 08:49: WBC 16.0 H, RBC 4.36 L, Hgb 12.9 L, Hct 38.5 L, MCV 88.2, MCH 29.5, MCHC 33.5, RDW 12.9, Plt Count 219, MPV 6.6 L, Neut % (Auto) 87.0 H, Lymph % (Auto) 6.8 L, [place] % (Auto) 4.4, Eos % (Auto) 1.5, Baso % (Auto) 0.3, Neut # (Auto) 13.9 H, Lymph # (Auto) 1.1, [place] # (Auto) 0.7, Eos # (Auto) 0.3, Baso # (Auto) 0.0, Total Counted 100, Neutrophils % (Manual) 88 H, Lymphocytes % (Manual) 6 L, Monocytes % (Manual) 4, Eosinophils % (Manual) 2, Platelet Estimate Normal, RBC Morphology Normal 06/30/18 08:49: Sodium 140, Potassium 3.1 L, Chloride 104, Carbon Dioxide 24, Anion Gap 15.1 H, BUN 7, Creatinine 0.76, Estimated Creat Clear 162, Estimated GFR 113, Est GFR ( Amer) 137, Glucose 103, Calcium 8.2 L, Total Bilirubin 1.2 H, AST 42 H D, ALT 231 H D, Alkaline Phosphatase 122 H, Total Protein 6.4, Albumin 2.7 L, Globulin 3.7 H, Albumin/Globulin Ratio 0.7 L, Amylase 127 H, Lipase 288 I & O for Last 24 hours: Intake & Output 06/27/18 06/28/18 06/29/18 06/30/18 11:59 11:59 11:59 11:59 Intake Total 3570 / 3570 3839 / 3839 2028 Balance 3570 / 3570 3839 / 3839 2028 Weight 197 lb 5.019 oz Assessment and Plan (1) Hypertension Current visit: Yes Status: Acute Category: Medical Code(s): I10 - Essential (primary) hypertension (2) Elevated LFTs Current visit: Yes Status: Acute Category: Medical Code(s): R94.5 - Abnormal results of liver function studies (3) Elevated bilirubin Current visit: Yes Status: Acute Category: Medical Code(s): R17 - Unspecified jaundice (4) Biliary sludge Current visit: Yes Status: Acute Category: Medical Code(s): K83.8 - Other specified diseases of biliary tract (5) Kidney stone Current visit: Yes Status: Acute Category: Medical Code(s): N20.0 - Calculus of kidney (6) Pancreatitis Current visit: Yes Status: Acute Category: Medical Code(s): K85.90 - Acute pancreatitis without necrosis or infection, unspecified (7) Cholelithiasis NOS Current visit: Yes Status: Acute Category: Medical Code(s): K80.20 - Calculus of gallbladder without cholecystitis without obstruction - Assessment and plan all Dx Assessment and Plan for all problems:: Saw patient, agree with above note.
[2018-06-30 09:14] LABS: Basophils % 0.3 % (0.1-2.0); Eosinophils # 0.3 K/mm3 (0.0-0.4); Eosinophils % 1.5 % (0.1-12.0); Hematocrit 38.5 % (42.0-52.0); Hemoglobin 12.9 g/dL (14.1-18.0); Lymphocytes # 1.1 K/mm3 (0.7-4.5); Lymphocytes % 6.8 % (10-50); Mean Corpuscular HGB Conc 33.5 g/dL (31.8-35.4); Mean Corpuscular Hemoglobin 29.5 pg (27.0-31.2); Mean Corpuscular Volume 88.2 fl (80-94); Mean Platelet Volume 6.6 fl (7.4-10.4); Monocytes # 0.7 K/mm3 (0.1-1.0); Monocytes % 4.4 % (1.7-9.3); Neutrophils # 13.9 K/mm3 (1.8-7.8); Platelet Count 219 K/mm3 (142-424); Red Blood Count 4.36 M/mm3 (4.60-6.20); Red Cell Distribution Width 12.9 % (11.5-17.5)
[2018-06-30 09:46] LABS: Albumin Level 2.7 gm/dL (3.4-5.0); Albumin/Globulin Ratio 0.7 (1.1-1.8); Anion Gap 15.1 mEq/L (5-15); Bilirubin,Total 1.2 mg/dL (0.2-1.0); Calcium 8.2 mg/dL (8.5-10.1); Globulin 3.7 gm/dl (1.3-3.2); Potassium 3.1 mmoL/L (3.5-5.1); Total Protein,Serum 6.4 gm/dL (6.4-8.2)
[2018-06-30 10:49] LABS: Eosinophils % 2 % (0-3); Lymphocytes % 6 % (10-50); Monocytes % 4 % (2-9); Neutrophils % 88 % (42-76); RBC Morphology Normal; Total Cells Counted 100
--- NOTE | 2018-06-30 14:42 | Progress Note ---
[facility] Anesthesia Checklist - Structural Data Admitted From: Inpatient Planned Operative Procedure/s: shaunna puckett Consent for Planned Operative Procedure(s) Verified: Yes - Airway Assessment C-Spine Mobility Assessed: Yes TMJ Mobility Assessed: Yes Dentition: Poor Dentition - Neurological Assessment Level of Consciousness: Awake, Alert, Appropriate - Anesthesia Plan Anesthesia Risk discussed: Yes Anesthesia Plan: Verified ASA Class: II Anesthesia Type: General [facility] History I have reviewed the patient's past medical history: Yes Medical History: Reports:: Hypertension Denies:: Cancer, Diabetes Mellitus Type 1, Diabetes Mellitus Type 2, MRSA *Have you ever received a pneumonia vaccine?: No *Have you received a flu vaccine this season?: No Laterality Cases: Right: Partial Knee Replacement, Other Amputation: No - *Social History Educational Level: Completed High School Smoking Status: Never smoker Tobacco Type: smokeless tobacco # Packs/Day (cigarettes): 0 Alcohol Intake: current Alcohol Intake Frequency:: holidays/special occasions only Substance Use Type: marijuana Last Used Substance: unknown *Occupational Status:: employed Housing: house Household Members: spouse *Travel in the last 8 weeks: None - Psychiatric History Expresses thoughts of harming self/others: None Suicide Plan Description: No Plan Family Hx:: Asthma, Cancer, Coronary Artery Disease, Heart Attack, Hyperlipidemia, Hypertension, Stroke
--- NOTE | 2018-06-30 17:15 | Progress Note ---
[facility] Anesthesia Record Part II Discharge Time: 17:40 Destination: floor PACU nurse assessment reviewed?: Yes Patient Condition:: Good Anesthesia Complications:: None Swallowing reflex intact?: Yes Cyanosis?: No
--- NOTE | 2018-06-30 17:15 | Progress Note ---
[facility] Anesthesia Record Part I Intake, IV Amount: 2,000 Estimated blood loss (mL): 0 Urine output (mL): 0 Blood Pressure: 149/83 SaO2: 92 Pulse Rate: 75 Respiratory Rate: 12 Temperature: 97.5 F Patient is:: Awake, Stable Stable to PACU at:: 17:10
--- NOTE | 2018-06-30 17:25 | Operative Note ---
Date of procedure: 06/30/18 Pre-op Diagnosis:: Biliary pancreatitis Post-op Diagnosis:: Same Procedure performed:: Laparoscopic cholecystectomy with intraoperative cholangiogram Surgeon:: Farhan Ponce MD MENTAL HEALTH PROGRAM DIRECTOR:: Evelio Ross Anesthesia: GETA Estimated blood loss (mL): 30 Clinical Note:: Patient is a 42-year-old white male who presented with acute abdominal pain and was found to have chemical and radiographic evidence of acute pancreatitis. He was admitted for inpatient management. Surgical consultation was obtained. He had a gallbladder ultrasound performed which revealed gallstones and his laboratory studies were consistent with biliary pancreatitis. This was managed medically and he showed improvement over the next several days. Plan was made for early interval laparoscopic cholecystectomy with intraoperative cholangiogram to eliminate the source and etiology of his pancreatitis. Operative findings:: Patient had a thickened gallbladder. There was some bilious fluid around the liver. There was intense inflammatory response around the aleja hepatis. Intraoperative cholangiogram revealed no filling defect or obstruction. There was an incidental hernia at the umbilical area. Operative note:: Consent was obtained and patient was taken to the operating room. He was given preoperative intravenous antibiotics. In the operating room he was placed in the supine position and general anesthesia was induced via endotracheal tube. Abdomen was prepped and draped in the standard surgical fashion. Subumbilical skin incision was made and while performing abdominal wall lift Veress needle was inserted. CO2 pneumoperitoneum was achieved to 15 mmHg. A 10 mm trocar was inserted at the umbilicus. Intraperitoneal contents were visualized. He was positioned in reverse Trendelenburg left side down. A couple of 5 mm trochars were inserted in the right upper abdomen and 10 mm trocar was inserted in the epigastrium. There is some bilious stained fluid around the liver and this was suctioned free. Liver was elevated and the gallbladder was identified. Dissection was carried out at the neck of the gallbladder bluntly incising the visceral peritoneum. There was an intense acute and chronic inflammatory response around the aleja hepatis and neck of the gallbladder. Prolonged dissection was carried out and it was initially difficult to identify the cystic duct as the neck of the gallbladder slowly tapered into the cystic duct. With prolonged careful dissection was ultimately isolated. It was clipped proximal to the gallbladder. There was concern for possible stone within the cystic duct given the operative appearance and consistency of the tissues. Taut cholangiocatheter was inserted and a small ductotomy was created. With minimal difficulty the cholangiocatheter was manipulated into the cystic duct where it was secured with a Hemoclip. Intraoperative cholangiogram was performed which revealed no evidence of any filling defect or obstruction with good flow of contrast. Patient was repositioned and the cholangiocatheter was removed. The cystic duct was multiply clipped and then divided. Cystic artery was carefully coagulated with DAVON ultrasonic harmonic alpa and divided. Gallbladder was dissected free from the liver in a retrograde fashion using DAVON ultrasonic harmonic alpa. There is some minimal bleeding from likely superficial hepatic vessel essentially adherent to the gallbladder peritoneum. Laparoscopic electrocautery was used with good hemostasis. Gallbladder was then dissected the rest of the way from the gallbladder fossa and placed within an Endo Catch retrieval device and removed from the peritoneal cavity via the umbilical trocar site. At this time it was noted that there was a small umbilical hernia immediately above the trocar port placement site. The gallbladder fossa was then thoroughly irrigated and aspirated until clear. Trochars were removed as CO2 pneumoperitoneum was evacuated. Due to the findings of the hernia dissection was carried out dissecting free the hernia sac from the umbilical sub-dermis. Dissection was carried down to the fascia. There is some herniated preperitoneal fat which was excised using electrocautery. The small fascial bridge between the hernia and trocar incision was divided with electrocautery. The combined incision fascia was then closed with interrupted 0 Ethibond sutures vertically. This appeared to close both defects. Local anesthetic was then infiltrated. Skin incisions were closed with 4-0 Monocryl in a subcuticular fashion. Steri-Strips and dressings were applied. Patient does have some potential for hernia recurrence at the umbilical area giv en the findings of an incidental umbilical hernia. He likely may have some elevation of liver transaminases postoperatively given the inflammatory response of the gallbladder. Condition: stable Disposition: PACU Specimens:: Gallbladder and contents Complications:: None immediately apparent
[2018-07-01 06:52] LABS: Basophils % 0.1 % (0.1-2.0); Eosinophils % 0.1 % (0.1-12.0); Hematocrit 35.2 % (42.0-52.0); Lymphocytes % 7.1 % (10-50); Mean Corpuscular HGB Conc 32.9 g/dL (31.8-35.4); Mean Corpuscular Hemoglobin 29.1 pg (27.0-31.2); Mean Corpuscular Volume 88.6 fl (80-94); Monocytes # 0.5 K/mm3 (0.1-1.0); Monocytes % 3.7 % (1.7-9.3); Neutrophils % 89.1 % (37.0-80.0); Platelet Count 208 K/mm3 (142-424); Red Blood Count 3.97 M/mm3 (4.60-6.20); Red Cell Distribution Width 12.9 % (11.5-17.5); White Blood Count 13.5 K/mm3 (4.8-10.8)
[2018-07-01 07:12] LABS: Albumin Level 2.4 gm/dL (3.4-5.0); Albumin/Globulin Ratio 0.6 (1.1-1.8); Anion Gap 14.7 mEq/L (5-15); Bilirubin,Total 0.6 mg/dL (0.2-1.0); Calcium 8.4 mg/dL (8.5-10.1); Globulin 3.8 gm/dl (1.3-3.2); Potassium 3.7 mmoL/L (3.5-5.1); Total Protein,Serum 6.2 gm/dL (6.4-8.2)
[2018-07-01 07:36] LABS: Hemoglobin 11.8 g/dL (14.1-18.0)
--- NOTE | 2018-07-01 08:29 | Progress Note ---
Subjective Patient reports: feels better Narrative: Patient feels much better. Ate caldera and eggs without difficulty. Exam Vital signs and Labs for Last 24 Hours: Temp Pulse Resp BP Pulse Ox 97.7 F 61 18 145/88 H 94 L 07/01/18 08:00 07/01/18 08:00 07/01/18 08:00 07/01/18 08:00 07/01/18 08:00 Laboratory Results - last 24 hr 06/30/18 08:49: WBC 16.0 H, RBC 4.36 L, Hgb 12.9 L, Hct 38.5 L, MCV 88.2, MCH 29.5, MCHC 33.5, RDW 12.9, Plt Count 219, MPV 6.6 L, Neut % (Auto) 87.0 H, Lymph % (Auto) 6.8 L, Bet[place] % (Auto) 4.4, Eos % (Auto) 1.5, Baso % (Auto) 0.3, Neut # (Auto) 13.9 H, Lymph # (Auto) 1.1, [place]hel # (Auto) 0.7, Eos # (Auto) 0.3, Baso # (Auto) 0.0, Total Counted 100, Neutrophils % (Manual) 88 H, Lymphocytes % (Manual) 6 L, Monocytes % (Manual) 4, Eosinophils % (Manual) 2, Platelet Estimate Normal, RBC Morphology Normal 06/30/18 08:49: Sodium 140, Potassium 3.1 L, Chloride 104, Carbon Dioxide 24, Anion Gap 15.1 H, BUN 7, Creatinine 0.76, Estimated Creat Clear 162, Estimated GFR 113, Est GFR ( Amer) 137, Glucose 103, Calcium 8.2 L, Total Bilirubin 1.2 H, AST 42 H D, ALT 231 H D, Alkaline Phosphatase 122 H, Total Protein 6.4, Albumin 2.7 L, Globulin 3.7 H, Albumin/Globulin Ratio 0.7 L, Amylase 127 H, Lipase 288 07/01/18 06:44: WBC 13.5 H, RBC 3.97 L, Hgb 11.8 L, Hct 35.2 L, MCV 88.6, MCH 29.1, MCHC 32.9, RDW 12.9, Plt Count 208, MPV 7.0 L, Neut % (Auto) 89.1 H, Lymph % (Auto) 7.1 L, [place] % (Auto) 3.7, Eos % (Auto) 0.1, Baso % (Auto) 0.1, Neut # (Auto) 12.0 H, Lymph # (Auto) 1.0, Bethel # (Auto) 0.5, Eos # (Auto) 0.0, Baso # (Auto) 0.0 07/01/18 06:44: Sodium 142, Potassium 3.7, Chloride 105, Carbon Dioxide 26, Anion Gap 14.7, BUN 12 D, Creatinine 0.74, Estimated Creat Clear 166, Estimated GFR 117, Est GFR ( Amer) 141, Glucose 139 H D, Calcium 8.4 L, Total Bilirubin 0.6, AST 36, ALT 168 H D, Alkaline Phosphatase 104, Total Protein 6.2 L, Albumin 2.4 L D, Globulin 3.8 H, Albumin/Globulin Ratio 0.6 L, Amylase 49 D, Lipase 111 I & O for Last 24 hours: Intake & Output 06/28/18 06/29/18 06/30/18 07/01/18 11:59 11:59 11:59 11:59 Intake Total 3570 / 3570 3839 / 3839 2028 4711 / 4711 Balance 3570 / 3570 3839 / 3839 2028 4711 / 4711 Weight 197 lb 5.019 oz 197 lb - *Routine Abdominal Exam Present: soft Comments: Incisions clean and dressed. Progress Note: A&P (1) Hypertension Status: Acute Current Visit: Yes (2) Elevated LFTs Status: Acute Current Visit: Yes (3) Elevated bilirubin Status: Acute Current Visit: Yes (4) Biliary sludge Status: Acute Current Visit: Yes (5) Kidney stone Status: Acute Current Visit: Yes (6) Pancreatitis Status: Acute Current Visit: Yes (7) Cholelithiasis NOS Status: Acute Current Visit: Yes Assessment and Plan for All Diagnoses:: Should be okay for discharge with outpatient follow up.
--- NOTE | 2018-07-01 08:31 | Progress Note ---
<Miladis Trotter - Last Filed: 07/01/18 08:34> Internal Medicine - PN: Subj Interval history: Patient had a laparoscopic cholecystectomy yesterday and is doing well. He has been up walking around the halls and is tolerated a diet. He is anxious to go home and has minimal pain. Exam Vital signs and Labs for Last 24 Hours: Temp Pulse Resp BP Pulse Ox 97.7 F 61 18 145/88 H 94 L 07/01/18 08:00 07/01/18 08:00 07/01/18 08:00 07/01/18 08:00 07/01/18 08:00 Laboratory Results - last 24 hr 06/30/18 08:49: WBC 16.0 H, RBC 4.36 L, Hgb 12.9 L, Hct 38.5 L, MCV 88.2, MCH 29.5, MCHC 33.5, RDW 12.9, Plt Count 219, MPV 6.6 L, Neut % (Auto) 87.0 H, Lymph % (Auto) 6.8 L, Marion % (Auto) 4.4, Eos % (Auto) 1.5, Baso % (Auto) 0.3, Neut # (Auto) 13.9 H, Lymph # (Auto) 1.1, Marion # (Auto) 0.7, Eos # (Auto) 0.3, Baso # (Auto) 0.0, Total Counted 100, Neutrophils % (Manual) 88 H, Lymphocytes % (Manual) 6 L, Monocytes % (Manual) 4, Eosinophils % (Manual) 2, Platelet Estimate Normal, RBC Morphology Normal 06/30/18 08:49: Sodium 140, Potassium 3.1 L, Chloride 104, Carbon Dioxide 24, Anion Gap 15.1 H, BUN 7, Creatinine 0.76, Estimated Creat Clear 162, Estimated GFR 113, Est GFR ( Amer) 137, Glucose 103, Calcium 8.2 L, Total Bilirubin 1.2 H, AST 42 H D, ALT 231 H D, Alkaline Phosphatase 122 H, Total Protein 6.4, Albumin 2.7 L, Globulin 3.7 H, Albumin/Globulin Ratio 0.7 L, Amylase 127 H, Lipase 288 07/01/18 06:44: WBC 13.5 H, RBC 3.97 L, Hgb 11.8 L, Hct 35.2 L, MCV 88.6, MCH 29.1, MCHC 32.9, RDW 12.9, Plt Count 208, MPV 7.0 L, Neut % (Auto) 89.1 H, Lymph % (Auto) 7.1 L, Marion % (Auto) 3.7, Eos % (Auto) 0.1, Baso % (Auto) 0.1, Neut # (Auto) 12.0 H, Lymph # (Auto) 1.0, Marion # (Auto) 0.5, Eos # (Auto) 0.0, Baso # (Auto) 0.0 07/01/18 06:44: Sodium 142, Potassium 3.7, Chloride 105, Carbon Dioxide 26, Anion Gap 14.7, BUN 12 D, Creatinine 0.74, Estimated Creat Clear 166, Estimated GFR 117, Est GFR ( Amer) 141, Glucose 139 H D, Calcium 8.4 L, Total Bilirubin 0.6, AST 36, ALT 168 H D, Alkaline Phosphatase 104, Total Protein 6.2 L, Albumin 2.4 L D, Globulin 3.8 H, Albumin/Globulin Ratio 0.6 L, Amylase 49 D, Lipase 111 I & O for Last 24 hours: Intake & Output 06/28/18 06/29/18 06/30/18 07/01/18 11:59 11:59 11:59 11:59 Intake Total 3570 / 3570 3839 / 3839 2028 4711 / 4711 Balance 3570 / 3570 3839 / 3839 2028 4711 / 4711 Weight 197 lb 5.019 oz 197 lb - Constitutional no acute distress - *Routine Respiratory Exam Present: CTA bilaterally - *Routine Cardiovascular Exam Present: RRR - *Routine Abdominal Exam Present: soft, normoactive bowel sounds, tenderness (around surgical sites) - *Routine Extremities Exam Absent: cyanosis, clubbing, edema Assessment and Plan (1) Hypertension Current visit: Yes Status: Acute Category: Medical Code(s): I10 - Essential (primary) hypertension (2) Elevated LFTs Current visit: Yes Status: Acute Category: Medical Code(s): R94.5 - Abnormal results of liver function studies (3) Elevated bilirubin Current visit: Yes Status: Acute Category: Medical Code(s): R17 - Unspecified jaundice (4) Biliary sludge Current visit: Yes Status: Acute Category: Medical Code(s): K83.8 - Other specified diseases of biliary tract (5) Kidney stone Current visit: Yes Status: Acute Category: Medical Code(s): N20.0 - Calculus of kidney (6) Pancreatitis Current visit: Yes Status: Acute Category: Medical Code(s): K85.90 - Acute pancreatitis without necrosis or infection, unspecified (7) Cholelithiasis NOS Current visit: Yes Status: Acute Category: Medical Code(s): K80.20 - Calculus of gallbladder without cholecystitis without obstruction (8) Status post cholecystectomy Current visit: Yes Status: Acute Category: Surgical Code(s): Z90.49 - Acquired absence of other specified parts of digestive tract - Assessment and plan all Dx Assessment and Plan for all problems:: According to Dr. Ponce, patient is stable to be discharged home today and he will provide some pain medication. <Maxx Patel - Last Filed: 07/01/18 09:04> Exam Vital signs and Labs for Last 24 Hours: Temp Pulse Resp BP Pulse Ox 97.7 F 61 18 145/88 H 94 L 07/01/18 08:00 07/01/18 08:00 07/01/18 08:00 07/01/18 08:00 07/01/18 08:00 Laboratory Results - last 24 hr 06/30/18 08:49: WBC 16.0 H, RBC 4.36 L, Hgb 12.9 L, Hct 38.5 L, MCV 88.2, MCH 29.5, MCHC 33.5, RDW 12.9, Plt Count 219, MPV 6.6 L, Neut % (Auto) 87.0 H, Lymph % (Auto) 6.8 L, Marion % (Auto) 4.4, Eos % (Auto) 1.5, Baso % (Auto) 0.3, Neut # (Auto) 13.9 H, Lymph # (Auto) 1.1, Marion # (Auto) 0.7, Eos # (Auto) 0.3, Baso # (Auto) 0.0, Total Counted 100, Neutrophils % (Manual) 88 H, Lymphocytes % (Manual) 6 L, Monocytes % (Manual) 4, Eosinophils % (Manual) 2, Platelet Estimate Normal, RBC Morphology Normal 06/30/18 08:49: Sodium 140, Potassium 3.1 L, Chloride 104, Carbon Dioxide 24, Anion Gap 15.1 H, BUN 7, Creatinine 0.76, Estimated Creat Clear 162, Estimated GFR 113, Est GFR ( Amer) 137, Glucose 103, Calcium 8.2 L, Total Bilirubin 1.2 H, AST 42 H D, ALT 231 H D, Alkaline Phosphatase 122 H, Total Protein 6.4, Albumin 2.7 L, Globulin 3.7 H, Albumin/Globulin Ratio 0.7 L, Amylase 127 H, Lipase 288 07/01/18 06:44: WBC 13.5 H, RBC 3.97 L, Hgb 11.8 L, Hct 35.2 L, MCV 88.6, MCH 29.1, MCHC 32.9, RDW 12.9, Plt Count 208, MPV 7.0 L, Neut % (Auto) 89.1 H, Lymph % (Auto) 7.1 L, [place] % (Auto) 3.7, Eos % (Auto) 0.1, Baso % (Auto) 0.1, Neut # (Auto) 12.0 H, Lymph # (Auto) 1.0, Marion # (Auto) 0.5, Eos # (Auto) 0.0, Baso # (Auto) 0.0 07/01/18 06:44: Sodium 142, Potassium 3.7, Chloride 105, Carbon Dioxide 26, Anion Gap 14.7, BUN 12 D, Creatinine 0.74, Estimated Creat Clear 166, Estimated GFR 117, Est GFR ( Amer) 141, Glucose 139 H D, Calcium 8.4 L, Total Bilirubin 0.6, AST 36, ALT 168 H D, Alkaline Phosphatase 104, Total Protein 6.2 L, Albumin 2.4 L D, Globulin 3.8 H, Albumin/Globulin Ratio 0.6 L, Amylase 49 D, Lipase 111 I & O for Last 24 hours: Intake & Output 06/28/18 06/29/18 06/30/18 07/01/18 11:59 11:59 11:59 11:59 Intake Total 3570 / 3570 3839 / 3839 2028 4711 / 4711 Balance 3570 / 3570 3839 / 3839 2028 4711 / 4711 Weight 197 lb 5.019 oz 197 lb Assessment and Plan (1) Hypertension Current visit: Yes Status: Acute Category: Medical Code(s): I10 - Essential (primary) hypertension (2) Elevated LFTs Current visit: Yes Status: Acute Category: Medical Code(s): R94.5 - Abnormal results of liver function studies (3) Elevated bilirubin Current visit: Yes Status: Acute Category: Medical Code(s): R17 - Unspecified jaundice (4) Biliary sludge Current visit: Yes Status: Acute Category: Medical Code(s): K83.8 - Other specified diseases of biliary tract (5) Kidney stone Current visit: Yes Status: Acute Category: Medical Code(s): N20.0 - Calculus of kidney (6) Pancreatitis Current visit: Yes Status: Acute Category: Medical Code(s): K85.90 - Acute pancreatitis without necrosis or infection, unspecified (7) Cholelithiasis NOS Current visit: Yes Status: Acute Category: Medical Code(s): K80.20 - Calculus of gallbladder without cholecystitis without obstruction (8) Status post cholecystectomy Current visit: Yes Status: Acute Category: Surgical Code(s): Z90.49 - Acquired absence of other specified parts of digestive tract - Assessment and plan all Dx Assessment and Plan for all problems:: Saw patient, agree with above note.
[2018-07-01 11:20] LABS: Lymphocytes % 7 % (10-50); Monocytes % 1 % (2-9); Neutrophils % 92 % (42-76); RBC Morphology Normal; Total Cells Counted 100
--- NOTE | 2018-07-04 22:11 | Discharge Summary ---
General - General Admission date:: 06/27/18 Discharge date: 07/01/18 HPI HPI: Mr. Perez is a 42-year-old male patient with a history of hypertension who has had intermittent abdominal pain for the past 3 weeks. The pain became worse the past 3 days and he describes it as sharp, constant pain. He has had minimal nausea and no vomiting. He has been able to eat and drink normally. He feels bloated. When the pain became worse he presented to the emergency room. He was able to sleep at intervals during the night. The pain became worse this a.m. He is not nauseated and has not vomited. He has been experiencing constipation with last bowel movement 4 days ago. He has been taking a laxative. Patient is NPO Hospital Course Hospital Course: The patient's amylase and lipase were extremely elevated. His white count, bilirubin, and liver function tests were also elevated. He had a CT scan showing acute pancreatitis and a possible gallbladder stone. There was some thickening of the stomach wall and esophagus reflecting gastritis and esophagitis. Surgery was consulted and a gallbladder ultrasound was ordered. The patient was continued on pain management and IV fluids. Dr. Ponce saw the patient and felt he had biliary pancreatitis. His ultrasound did show cholelithiasis with mild gallbladder wall thickening as well as questionable minimal pericholecystic fluid versus edema within the wall of the gallbladder. His LFTs and pancreatic enzymes did improve. Dr. Ponce planned a cholecystectomy with cholangiogram. The patient's hepatitis panel was negative. He had a laparoscopic cholecystectomy with intraoperative cholangiogram on 06/30/18. The patient did have a very thickened gallbladder with some bilious fluid around the liver. There was intense inflammatory response around the aleja hepatis but the intraoperative cholangiogram revealed no filling defect or obstruction. There was also an incidental hernia at the umbilical area. The patient tolerated the procedure well and was able to tolerate a diet. He had minimal pain and was up moving around the room as well as the hospital floor. He was stable to be discharged home and will follow-up with Dr. Ponce on an outpatient basis. Objective Vital signs: Temp Pulse Resp BP Pulse Ox 97.7 F 61 18 145/88 H 94 L 07/01/18 08:00 07/01/18 08:00 07/01/18 08:00 07/01/18 08:00 07/01/18 08:00 Narrative: - Constitutional no acute distress Comments: sitting on the bedside and is somewhat uncomfortable - *Routine HEENT Exam Head: Present: normocephalic, atraumatic Eye: Present: PERRL. Absent: conjunctival icterus, scleral injection ENT: Present: mucous membranes moist - *Routine Neck Exam Present: supple. Absent: carotid bruit, lymphadenopathy, thyromegaly - *Routine Respiratory Exam Present: CTA bilaterally (A&P) - *Routine Cardiovascular Exam Present: RRR - *Routine Abdominal Exam Present: soft, tenderness (epigastrium and RLQ) - *Routine Extremities Exam Absent: edema, calf tenderness - *Routine Neurological Exam Present: alert, oriented X3 DS: Diagnosis - Discharge Diagnosis (1) Hypertension Status: Acute (2) Elevated LFTs Status: Acute (3) Elevated bilirubin Status: Acute (4) Biliary sludge Status: Acute (5) Kidney stone Status: Acute (6) Pancreatitis Status: Acute (7) Cholelithiasis NOS Status: Acute (8) Status post cholecystectomy Status: Acute Discharge Plan - Patient Discharge Instructions ACTIVITY: Continue current activity DIET: continue same diet Additional Instructions: Post op restrictions per Dr. Ponce Patient Instructions: Acute Pancreatitis, Acute Abdominal Pain, DI for Pancreatitis, DI for Abdominal Pain-Adult, DI for Acute Abdomen, DI for Surgical Site Infection, Cholecystectomy -- Laparoscopic Surgery - Follow up Plan Follow up with: Maxx Patel MD [Primary Care Provider] - 2 weeks Farhan Ponce MD [Staff Physician] - 07/09/18 Disposition: Home, Self-Skilled Nursing Medications: Home Medications Medication Instructions Recorded Confirmed Type Lisinopril [Lisinopril 20mg Tab] 20 mg PO DAILY 06/27/18 06/28/18 History Hydrocod/Acet 5/325 mg [Marion 1 - 2 tab PO Q6HP PRN #11 tab 07/01/18 Rx 5/325mg tablet] Prescriptions/Medication Reconciliation: New Hydrocod/Acet 5/325 mg [Marion 5/325mg tablet] 1 - 2 tab PO Q6HP PRN #11 tab PRN Reason: Moderate Pain Continue Lisinopril [Lisinopril 20mg Tab] 20 mg PO DAILY
== END 2018-07-01 09:40 | disposition home or self-care (01) | DRG 419 ==
LOC: ER 15:41 → 2ND 19:30
PROVIDERS: ADMIT Family Medicine; ATTEND Family Medicine
CPT/HCPCS: 36415; 74177; 74300; 76000; 76705; 80053; 80061; 80074; 81001; 82150; 83690; 85007; 85025; 96365; 96375; 99284; J2405; J2710; Q9967

== ENCOUNTER 2020-11-26 11:48 | Emergency (ER) | payer BC, SELFPAY ==
[2020-11-26 13:51] VITALS: PULSE 81; RESP 20; TEMP 37.1; O2SAT 98; BMI 29.7
--- NOTE | 2020-11-26 13:56 | HMH.EDUTC ---
[facility] [place] Disposition Clinical Impression: Exposure to COVID-19 virus Disposition: Home, Self-Care Condition on Discharge: Good Instructions: Preventing the Spread of Coronavirus Discharge Instructions Additional Instructions: Drink plenty of fluids. Take tylenol for pain or fever. Return if you begin to have difficulty breathing. Follow up with your regular doctor. GO TO THE ER FOR ANY WORSENING SYMPTOMS Referrals: Maxx Patel MD [Primary Care Provider] - Forms: Work/School Release Time of Disposition: 13:58 Medical Decision Making - Medical Records Medical records reviewed: No: I reviewed the patient's medical records. - Yann Inquiry Pt receiving controlled substance: No Vital Signs: 11/26/20 13:51 11/26/20 14:25 Temperature 98.8 F 98.8 F Temperature Source Oral Pulse Rate 81 Pulse Rate [Left] 81 Respiratory Rate 20 20 Blood Pressure 128/86 02 Sat by Pulse Oximetry 98 - Lab Data Lab Results 11/26/20 13:36: SARS-CoV-2 (PCR) Detected A, Influenza A Untype (PCR) Not detected, Influenza Type B (PCR) Not detected [facility] [place] HPI - General Stated complaint: covid exposure Time Seen by Provider: 11/26/20 13:57 - History of Present Illness Provider Complaint: He states that he was exposed to covid-19 at his job. His boss told him that he needs to be tested. He denies any symptoms. He states that he feels fine. He has not been vaccinated for covid-19. - Related Data Home Medications Medication Instructions Recorded Confirmed lisinopriL [Lisinopril 20mg Tab] 20 mg PO DAILY 06/27/18 08/02/18 Allergies Allergy/AdvReac Type Severity Reaction Status Date / Time No Known Allergies Allergy Verified 08/02/18 09:39 [facility] History - Hepatitis A Screen Attestation statement:: This patient has been screened for Hepatitis A risk factors. I have reviewed the patient's past medical history: Yes Medical History: Reports:: Hypertension Denies:: Cancer, Diabetes Mellitus Type 1, Diabetes Mellitus Type 2, MRSA Laterality Cases: Right: Other Other Surgeries: Yes: Cholecystectomy Amputation: No - Social History Smoking Status: Never smoker Tobacco Type: smokeless tobacco # Packs/Day (cigarettes): 0 Alcohol Intake: current Alcohol Intake Frequency:: holidays/special occasions only Substance Use Type: marijuana Occupational Status: employed Housing: house Household Members: spouse Family Hx:: Asthma, Cancer, Coronary Artery Disease, Heart Attack, Hyperlipidemia, Hypertension, Stroke ROS Obtained: Yes All systems reviewed & no additional complaints - Constitutional Constitutional: Reports system reviewed and no additional complaints, except as docu - Eyes Eyes: Reports system reviewed and no additional complaints, except as docu - ENT Ears, Nose, Mouth, and Throat: Reports system reviewed and no additional complaints, except as docu - Cardiovascular Cardiovascular: Reports system reviewed and no additional complaints, except as docu - Respiratory Respiratory: Reports system reviewed and no additional complaints, except as docu - Gastrointestinal Gastrointestingal: Reports: system reviewed and no additional complaints, except as docu Physical Exam - General General appearance: alert, in no apparent distress - Head Head exam: atraumatic, normocephalic, normal inspection - Eye Eye exam: Present: normal appearance, PERRL, EOMI - ENT ENT exam: Present: normal exam, normal oropharynx, mucous membranes moist, TM's normal bilaterally, normal external ear exam - Neck Neck exam: Present: normal inspection, full ROM, trachea midline. Absent: meningismus, lymphadenopathy - Chest Chest inspection: Present: normal inspection, symmetric chest wall rise. Absent: tenderness - Respiratory Respiratory exam: Present: normal lung sounds bilaterally. Absent: respiratory distress - Cardiovascular Cardiovascular exam: Present: regular rate, normal rhythm. A
[2020-11-26 14:24] LABS: Influenza A, PCR Not Detected (NotDetected); Influenza B, PCR Not Detected (NotDetected)
[2020-11-26 14:25] VITALS: BP 128/86; PULSE 81; RESP 20; TEMP 37.1
[2020-11-26 14:50] LABS: Coronavirus 19, PCR Detected (NotDetected)
--- NOTE | 2020-11-26 16:55 | PC.NURSE ---
pt called and advised of positive covid test
== END 2020-11-26 14:25 | disposition home or self-care (01) ==
PROVIDERS: Emergency Provider Nurse Practitioner Family; PCP Family Medicine
DX: U07.1 COVID-19 (principal); I10 Essential (primary) hypertension
CPT/HCPCS: 99202; G0463; U0003

== ENCOUNTER → 2022-04-17 10:50 | Outpatient (CLI) | payer BC, SELFPAY | PROVIDERS: PCP Nurse Practitioner; Visit Provider Nurse Practitioner | DX: I10 Essential (primary) hypertension (principal) ==

== ENCOUNTER → 2025-01-26 08:13 | Outpatient (CLI) | payer BC, SELFPAY | LOC: SL 08:14 | PROVIDERS: PCP Family Medicine; Visit Provider Family Medicine | DX: G47.33 Obstructive sleep apnea (adult) (pediatric) (principal); E66.9 Obesity, unspecified; I10 Essential (primary) hypertension ==